=== PATIENT | female | born 1995 | race African-American/Black ===

== ENCOUNTER 2021-08-14 10:42 | Emergency (ER) | payer OTHER, MEDICAID ==
[~2021-08-14] VITALS: Ht 154.9 cm; Wt 99.8 kg
[~2021-08-14 10:42] MED LIST: AMOXICILLIN500 M1 PO; IBUPROFEN 800800 M1 PO; MEDROLDOSEPACK PO; NOHOMEMEDICATIONS; NORCO 5-325 TA1 EACH PO
[2021-08-14] MEDS ORDERED: NEXPLANON68 MG SUBQ (10:58)
[2021-08-14] MEDS ORDERED: AMOXICILLIN 50500 MG PO (11:11)
[2021-08-14] MEDS ORDERED: HYDROCODON-ACE1 EAC7 PO (12:07)
[2021-08-14 12:19] VITALS: BP 122/68
== END 2021-08-14 12:20 | disposition home or self-care (01) ==
LOC: M.ERS 10:42
DX: K04.7 Periapical abscess without sinus (principal); M25.531 Pain in right wrist; Z79.899 Other long term (current) drug therapy